=== PATIENT | male | born 1940 | race Caucasian/White ===

== ENCOUNTER 2016-07-13 11:52 | Day surgery (SDC) | payer MEDICARE, OTHER ==
--- NOTE | ~2016-07-13 | EGD ---
EGD REPORT [facility] [address] [place] [id number] NAME: DANIS BERGMAN : [birth year] [place]US : [place] [facility] [id number] AGE: 76 ADM/REG DATE : 07/13/16 MR#: [id number] REPORT SERV DATE: 07/13/16 DICTATED BY: ENRIQUE GARDNER DATE: 07/13/16 REPORT STATUS : Draft [facility]ANS[facility]IBED BY: [facility] DATE: 07/13/16 [facility] Center Patient Name: Danis Bergman Date of : 1940 Attending MD: ARIAS GARDNER MD Procedure Date No Time: 07/13/2016 Procedure: Colonoscopy Indications: High risk colon cancer surveillance: Personal history of colonic polyps, Incidental - Rectal bleeding Referring MD: Danie Montana Medicines: See the Anesthesia note for documentation of the administered medications Complications: No immediate complications. Estimated blood loss: None. Procedure: Pre-Anesthesia Assessment: - ASA Grade Assessment: III - A patient with severe systemic disease. - Prior to the procedure, a History and Physical was performed, and patient medications and allergies were reviewed. The patient's tolerance of previous anesthesia was also reviewed. The risks and benefits of the procedure and the sedation options and risks were discussed with the patient. All questions were answered, and informed consent was obtained. Prior Anticoagulants: The patient has taken aspirin and Plavix (clopidogrel), last doses were 1 day prior to procedure. After reviewing the risks and benefits, the patient was deemed in satisfactory condition to undergo the procedure. - H/O idiopathic thrombocytopenia, platelets up to 133,000 after steroid treatment After I obtained informed consent, the scope was passed under direct vision. Throughout the procedure, the patient's blood pressure, pulse, and oxygen saturations were monitored continuously. The PCF [id number] was introduced through the anus and advanced to the terminal ileum. The ileocecal valve, appendiceal orifice, terminal ileum and rectum were photographed. The entire colon was examined. The colonoscopy was performed without difficulty. The patient tolerated the procedure well. The quality of the bowel preparation was adequate. Findings: The perianal and digital rectal examinations were normal. The terminal ileum appeared normal. A sessile polyp was found at the hepatic flexure. The polyp was diminutive in size. The polyp was removed with a cold biopsy forceps. EGD REPORT [place] [id number] [facility] [place]. [address] NAME: DANIS BERGMAN : [birth year] STATUS : [facility]#: [id number] AGE: 76 ADM/REG DATE : 07/13/16 MR#: [id number] REPORT SERV DATE: 07/13/16 DICTATED BY: ENRIQUE GARDNER DATE: 07/13/16 REPORT STATUS : Draft [facility]ANSCRIBED BY: [facility] DATE: 07/13/16 Resection and retrieval were complete. A few small-mouthed diverticula were found in the sigmoid colon. A few small diffuse angiodysplastic lesions without bleeding were found in the rectum. These AVMs were not treated as they are very close to grade II IH and patient is on ASA and plavis and as there is no bleeding Impression: - The examined portion of the ileum was normal. - One diminutive polyp at the hepatic flexure. Resected and retrieved. - Diverticulosis in the sigmoid colon. - A few non-bleeding colonic angiodysplastic lesions. Recommendation: - Patient has a contact number available for emergencies. The signs and symptoms of potential delayed complications were discussed with the patient. Return to normal activities tomorrow. Written discharge instructions were provided to the patient. - Discharge patient to home. - Await pathology results. Procedure Code(s): --- Professional --- 46072, Colonoscopy, flexible, proximal to splenic flexure; with biopsy, single or multiple Diagnosis Code(s): --- Professional --- K57.30, Diverticulosis of large intestine without perforation or abscess without bleeding D12.3, Benign neoplasm of transverse colon K55.20, Angiodysplasia of colon without hemorrhage Z86.010, Personal history of colonic polyps CPT copyright 2013 [employer]. All rights reserved. The codes documented in this report are preliminary and upon faith healer review may be revised to meet current compliance requirements. ARIAS GARDNER MD 07/13/2016 2:26 PM This report has been signed electronically. Number of Addenda: 0 Note Initiated On: 07/13/2016 1:43 PM Scope Withdrawal Time 0 hours 7 minutes 38 seconds [address] [place] [id number]
[~2016-07-13 11:52] MED LIST: ASAB PO; CIALIS20 MG PO; COREG3 PO; FISH OIL1200 MG PO; LOTE20 PO; LOTE40 PO; MAGOX4 PO; METPAKSF PO; PLAVIX PO; TUMERIC/CURCUMIN; UBIQUINOL; VITAMIN B PO; [UNRECOGNIZED DRUG - CODE]; [UNRECOGNIZED DRUG - OTHER]; [UNRECOGNIZED DRUG - OTHER]; [UNRECOGNIZED DRUG - OTHER]
== END 2016-07-13 23:59 | disposition home or self-care (01) ==
LOC: DMU 11:52
PROVIDERS: Internal Medicine Gastroenterology
PROC: 0DBK8ZZ Excision of Ascending Colon, Via Natural or Artificial Opening Endoscopic (ICD-10-PCS; principal; 2016-07-13 13:30)
DX: Z12.11 Encounter for screening for malignant neoplasm of colon (principal); K63.5 Polyp of colon; G47.33 Obstructive sleep apnea (adult) (pediatric); I10 Essential (primary) hypertension; Z85.46 Personal history of malignant neoplasm of prostate; Z92.3 Personal history of irradiation; Z95.5 Presence of coronary angioplasty implant and graft; Z87.891 Personal history of nicotine dependence; Z86.73 Personal history of transient ischemic attack (TIA), and cerebral infarction without residual deficits; H91.90 Unspecified hearing loss, unspecified ear; H93.19 Tinnitus, unspecified ear; R01.1 Cardiac murmur, unspecified; Z79.899 Other long term (current) drug therapy; Z79.01 Long term (current) use of anticoagulants; Z79.82 Long term (current) use of aspirin
CPT/HCPCS: 88305